=== PATIENT | female | born 1935 | race Native Hawaiian/Other Pacific Islander ===

== ENCOUNTER 2019-03-20 05:26 | Outpatient (RCR) | payer MEDICARE, MEDICAID, SELFPAY | END 2019-04-16 00:01 | LOC: LAB 05:26 | PROVIDERS: Family Provider Nurse Practitioner Family; Visit Provider Family Medicine | DX: E83.51 Hypocalcemia (principal); E55.9 Vitamin D deficiency, unspecified | CPT/HCPCS: 36415; 82306 ==

== ENCOUNTER → 2021-02-22 11:17 | Outpatient (BNVA) | payer MEDICARE, MEDICAID, SELFPAY | PROVIDERS: Family Provider Nurse Practitioner Family; Referring Provider Family Medicine; Visit Provider Specialist | DX: S42.252A Displaced fracture of greater tuberosity of left humerus, initial encounter for closed fracture (principal); Z46.89 Encounter for fitting and adjustment of other specified devices; S42.293A Other displaced fracture of upper end of unspecified humerus, initial encounter for closed fracture; X58.XXXA Exposure to other specified factors, initial encounter | CPT/HCPCS: 73030; 97760; L3670 ==

== ENCOUNTER 2021-02-22 14:09 | Outpatient (CLI) | payer MEDICARE, MEDICAID, SELFPAY | END 2021-02-22 14:10 | disposition home or self-care (01) | LOC: SPT 14:10 | PROVIDERS: Family Provider Nurse Practitioner Family; Visit Provider Specialist | DX: Z46.89 Encounter for fitting and adjustment of other specified devices (principal); S42.293A Other displaced fracture of upper end of unspecified humerus, initial encounter for closed fracture; X58.XXXA Exposure to other specified factors, initial encounter | CPT/HCPCS: 97760; L3670 ==

== ENCOUNTER → 2024-05-16 15:15 | Outpatient (BNVA) | payer MEDICARE, MEDICAID, SELFPAY | PROVIDERS: Family Provider Nurse Practitioner Family; Visit Provider Podiatrist Foot & Ankle Surgery | DX: I73.9 Peripheral vascular disease, unspecified (principal); L60.3 Nail dystrophy | CPT/HCPCS: 11721; 99203 ==

== ENCOUNTER → 2024-07-18 14:39 | Outpatient (BNVA) | payer MEDICARE, MEDICAID, SELFPAY | PROVIDERS: Family Provider Nurse Practitioner Family; Visit Provider Podiatrist Foot & Ankle Surgery | DX: I73.9 Peripheral vascular disease, unspecified (principal); L60.3 Nail dystrophy | CPT/HCPCS: 11721 ==

== ENCOUNTER → 2024-09-19 14:30 | Outpatient (BNVA) | payer MEDICARE, MEDICAID, SELFPAY | PROVIDERS: Family Provider Nurse Practitioner Family; PCP Nurse Practitioner Family; Visit Provider Podiatrist Foot & Ankle Surgery | DX: I73.9 Peripheral vascular disease, unspecified (principal); L60.8 Other nail disorders; L60.3 Nail dystrophy; R41.82 Altered mental status, unspecified | CPT/HCPCS: 11721; 99213 ==